=== PATIENT | male | born 1975 | race Caucasian/White ===

== ENCOUNTER 2017-09-22 05:27 | Day surgery (SDC) | payer OTHER ==
[~2017-09-22] VITALS: Ht 185.4 cm; Wt 78.5 kg
[2017-09-22] VITALS (7 sets, daily range): BP systolic 105–127; BP diastolic 61–87
--- NOTE | ~2017-09-22 | O ---
[facility] [place] [address] OPERATIVE REPORT Name: CAROLEE PANDYA Room #: [place] [facility] M..#: [id number] Admission: 09/22/17 Attend Phys: Andrés Montanez MD Discharge: 09/23/17 Date of : 71 Report #: [id number] THIS REPORT FOR: //name// CC: [facility] physician/PCP Andrés Francis MD DATE OF SERVICE: 09/22/2017 SURGEON: Andrés Montanez MD PREOPERATIVE DIAGNOSES: 1. Thyroid mass, 5.9 cm, left lobe. 2. Follicular thyroid nodule. POSTOPERATIVE DIAGNOSES: 1. Thyroid mass, 5.9 cm, left lobe. 2. Follicular thyroid nodule. OPERATION PERFORMED: 1. Total thyroidectomy with nerve dissection preservation. 2. Nerve integrity monitor x 2 hours. INDICATIONS: The patient is a 42-year-old gentleman, presenting with a large mass in his left thyroid measuring 5.9 cm. He had noticed it incidentally feeling his neck a couple of months ago. Ultrasound was done showing a 5.9 cm mass on the left, suspicious for neoplasm. The patient has noticed dysphagia for solids and liquids as well as compressive symptoms. Fine needle aspiration was done, which was negative for malignancy, but because of the size recommendations were made for definitive treatment, options of lobectomy versus total thyroidectomy were discussed. DESCRIPTION OF PROCEDURE: The patient was brought to the operating room and placed supine on the operating table. After adequate general anesthesia was achieved via endotracheal intubation with a nerve integrity monitoring endotracheal tube, a shoulder roll was placed and the neck was extended. The planned incision was marked out in a relaxed skin tension line just above the manubrium and injected with 1% Xylocaine with 1:100,000 epinephrine. As a separate part of the procedure, the XoMed nerve integrity monitor was applied to the electrodes from the endotracheal tube. Ground electrodes were placed in the soft tissue overlying the sternum and contralateral shoulder. Electrode resistance and impedance was measured and found to be acceptable. Threshold and stimulus intensity parameters were set and the patient was monitored for the entirety of the case of approximately 2 hours in order to locate and protect the recurrent laryngeal nerve. [facility] [address] [place] [address] OPERATIVE REPORT Name: CAROLEE PANDYA Room #: [facility] [facility] M.R.#: [id number] Admission: 09/22/17 Attend Phys: Andrés Montanez MD Discharge: 09/23/17 Date of : 71 Report #: [id number] He was then prepped and draped in a sterile fashion. The procedure began with incision through skin and subcutaneous tissue and platysma. Subplatysmal flaps were elevated superiorly and inferiorly. Dissection was made to the strap muscles. These were divided vertically in the midline and retracted laterally. The thyroid was then exposed. Beginning with the left lobe, which was the side of the mass, the superior border of the thyroid was then dissected, superior vessels were sequentially identified, clamped between Ligaclips and divided. Middle thyroid vein was taken down between Ligaclips and then inferiorly the inferior vessels were sequentially identified, clamped between Ligaclips and divided. The isthmus was then dissected off the trachea and taken down with harmonic cliff. This gland was then rolled up on to the trachea. A thyroid tenaculum was placed, but upon placement the thyroid mass essentially exploded with the contents outside of a very thin capsule. These were collected as specimen. The dissection was then made with pulling the thyroid up on to the trachea. Dissection was made in the tracheoesophageal groove. The recurrent laryngeal nerve was found in its usual anatomic position and was tracked superiorly. Once this was identified entering the cricothyroid joint, Phillips ligament was taken down sharply. Superior parathyroid on this side was attached to the capsule, dissected on its pedicle and preserved. The inferior parathyroid as well was attached to the capsule, dissected and preserved. This lobe was delivered off the field as specimen to pathology with the contents of the mass. This was consistent with a follicular lesion. Final diagnosis was deferred to permanent section. Dissection was then continued on the opposite right side. Beginning superiorly, the superior vesicle were clipped between Ligaclips and divided. Middle thyroid vein was taken down between Ligaclips and the inferior vessels were sequentially identified, clamped between Ligaclips and divided. This lobe was rolled up on to the trachea. Dissection in the tracheoesophageal groove revealed the recurrent nerve. This was tracked superiorly to the cricothyroid joint. Keeping this in direct vision, Phillips ligament was taken down sharply. Again, on this side, the superior parathyroid was attached to the capsule, dissected and preserved. The inferior parathyroid as well was identified, clamped, dissected and preserved. At the end of the procedure, both nerves were stimulated and found to be intact. The wounds were then irrigated, hemostasis assured with bipolar cautery and clip ligature. The wounds were irrigated and at this point powdered Judith was placed opposite each cricothyroid joint. A 10-Macedonian Faustino drain was placed through a separate stab incision, curled into the wound and sutured in place with 2-0 silk. The strap muscles were closed in the midline with interrupted 3-0 Vicryl. A 3-0 Vicryl was used to close strap muscles, 4-0 Vicryl deep dermal sutures and a 5-0 running subcuticular Prolene on skin. Mastisol and Steri-Strips were applied. The patient was returned to Anesthesia, awaken without difficulty, returned to recovery in good condition. Sponge and needle counts were correct. There were no complications. Blood loss was about [address] [address] OPERATIVE REPORT Name: CAROLEE PANDYA Room #: [place] [facility] Jose#: [id number] Admission: 09/22/17 Attend Phys: Andrés Montanez MD Discharge: 09/23/17 Date of : 71 Report #: [id number] The patient will be watched overnight for monitoring of calcium. Presuming he does well, discharged to home with plans to follow up with me in 1 week for suture removal, 48 hours for drain removal. Written and verbal discharge instructions and emergency precautions have been given to his . DISCHARGE MEDICATIONS: Include Synthroid 100 mcg 1 p.o. every day, clindamycin 300 mg 1 t.i.d. for 10 days, Phenergan suppository 25 mg 1 per rectum q.4-6 hours p.r.n., hydrocodone/acetaminophen 7.5/325 one to two q.4-6 hours p.r.n., Tums 2 tablets t.i.d. He is instructed on light activity and a soft diet. <ELECTRONICALLY SIGNED> By: Andrés Montanez MD 09/24/17 1515 1309 [id number] Andrés Montanez MD /gladys
--- NOTE | ~2017-09-22 | PATH ---
[facility] [place] [address] PATHOLOGY RPT PROCEDURE Name: CAROLEE PANDYA Room #: DEP [facility] [place] M.R.#: [id number] Admission: 09/22/17 Date of : 71 Discharge: 09/23/17 Report #: [id number] Path Case #: [id number] [facility] Accession Number: [id number] . 01 Material submitted: . PART A: LEFT THYROID LOBE AND ISTHMUS-F.S. PART B: RIGHT THYROID LOBE . 01 Clinical history: . Thyroid mass, thyroid nodule . 02 Diagnosis: A. Thyroid, left thyroid lobe and isthmus, lobectomy: - Multinodular hyperplasia with adenomatoid nodules. - Negative for malignancy. - Focal biopsy site change identified. . B. Thyroid, right thyroid lobe, lobectomy: - Multinodular hyperplasia. (IUV:jaycee; 09/24/2017) QMS/09/24/2017 . 02 Comment: Part A was co-reviewed by Dr. Sarina Patel, and she concurs with my diagnosis. . 02 Electronically signed: . Susie Martin MD, Pathologist NPI- [id number] . 01 Gross description: . A. The specimen is received fresh from the OR labeled with the patient's name, and "left thyroid lobe and isthmus" consists of an aggregate of about 24.6 grams of nodular thyroid tissue and a lobe with a smooth, santiago, capsular surface of 14.8 grams. The intact lobe measures 6.0 x 3.0 x 1.0 cm. There is a 2.0 cm circular defect towards one side. Per Dr. Montanez, the tissue disrupted intraoperatively. At this point the intact capsule is inked black. The entire specimen is serially sectioned. The nodular thyroid tissue (24.6 grams aggregate), shows a spongy parenchyma. A customer account representative section is submitted for frozen section as FSA1, this is submitted for permanent sections as A1. A separate unfrozen portion is used for a touch preparation labeled TPA2. A section from here is submitted for permanent sections only as A2. Additional customer account representative sections of the nodule with approximately 60% of the tissue submitted is submitted for permanent sections only as A3 through A5 and A6 through A10 customer account representative sections of the intact thyroid with its capsule. (IUV/db; 09/23/17) [address] [address] PATHOLOGY RPT PROCEDURE Name: CAROLEE PANDYA Room #: DEP [facility] [place] Jose#: [id number] Admission: 09/22/17 Date of : 71 Discharge: 09/23/17 Report #: [id number] Path Case #: [id number] . B. Received in formalin labeled "Carolee Pandya, right thyroid lobe" is an 8 g, 4.5 x 2.3 x 0.9 cm hemithyroidectomy specimen. The capsule is red-brown and smooth, and is inked black. The specimen is serially sectioned to reveal red-brown homogeneous thyroid parenchyma without masses or nodules present. The specimen is submitted entirely and sequentially from superior to inferior in cassettes B1-B6. ([facility]; 09/23/2017) . Frozen Section and Touch Prep Diagnosis: (Grecia Martin M.D.) . FSA1 and TPA2. Left thyroid lobe and isthmus, lobectomy: - Touch preparation shows abundant colloid. - The 24.6 gram aggregate shows mixed macro and microfollicles. - Nuclear features of papillary thyroid carcinoma are not identified on FSA1 or TPA2. . These findings are discussed with Dr. Montanez in OR1 at [facility] and a written report is placed in the patient's chart. (IUV/db; 09/23/17) . Frozen section and touch prep were performed at [facility],[address] [place] [id number]. SYC/LBQ . 02 Pathologist provided ICD-10: E04.2 . 02 CPT . 346137, 998229, [id number], [id number] Performed at: [address], [place] [id number] MD Boy Soria MD Phone: [phone] Performed at: [address] [id number] MD Susie Martin MD Phone: [phone]
[~2017-09-22 05:27] MED LIST: ALPHAGAN P5 ML OPHTHALMIC; BETIMOL5 ML OPHTHALMIC
[2017-09-22 14:16] LABS: ALBUMIN 4.3 g/dL (3.4-5.0)
[2017-09-23 04:17] VITALS: BP 106/63
[2017-09-23 07:35] VITALS: BP 104/70
[2017-09-23 08:23] VITALS: BP 106/63
== END 2017-09-23 10:27 | disposition home or self-care (01) ==
LOC: TBA 05:27 → OR 05:27 → 4W 14:44 → OR 14:45 → ENTRNSPT 09-23 10:23 → OR 09-23 10:27 → EDTRNSPTSTS 09-23 10:27
PROVIDERS: Otolaryngology Plastic Surgery within the Head & Neck
DX: E04.2 Nontoxic multinodular goiter (principal); G43.909 Migraine, unspecified, not intractable, without status migrainosus; Z98.890 Other specified postprocedural states; Z79.899 Other long term (current) drug therapy; Z79.891 Long term (current) use of opiate analgesic; Z98.41 Cataract extraction status, right eye; Z88.0 Allergy status to penicillin; Z98.42 Cataract extraction status, left eye; Z98.52 Vasectomy status; Z82.49 Family history of ischemic heart disease and other diseases of the circulatory system; Z86.39 Personal history of other endocrine, nutritional and metabolic disease
CPT/HCPCS: 10047; 50010; 50101; 50331; 50386; 50417; 52190; 52220; 52225; 52287; 56524; 56526; 56528; 56760; 57006; 62110; 62900; 70005